=== PATIENT | female | born 1975 | race African-American/Black ===

== ENCOUNTER 2017-08-06 11:45 | Emergency (ER) | payer MEDICARE, OTHER ==
[~2017-08-06] VITALS: Ht 165.1 cm; Wt 101.6 kg
[~2017-08-06 11:45] MED LIST: CALC600T5 PO; CHOL1CAP34 PO; FOLI800T PO; TEGR200T PO; TIZA2CAP3 PO; TIZA4CAP3 PO; VITA100018 PO; [UNRECOGNIZED DRUG - OTHER]
[2017-08-06 11:50] VITALS: BP 171/95; PULSE 85; RESP 16; TEMP 98.2; O2SAT 100
[2017-08-06 13:49] VITALS: BP 181/92; PULSE 78; RESP 16; O2SAT 98
--- NOTE | 2017-08-06 15:12 | PD ---
HPI Chief Complaint: Hypertension Time Seen by Provider: 14:58 Travel History International Travel<30 days: No Contact w/Intl Traveler<30days: No Traveled to known affect area: No History of Present Illness HPI 42yo F with PMH of cerebral palsy, bilateral blindness, right sided numbness and mild weakness from cerebral palsy presents to the ED with hemodialysis patient care specialist because her blood pressure was elevated today. They went to neurologist for normal follow up appointment and blood pressure was elevated there so was told to go follow up with PCP. They call PCP's office and was told to come to the ED. canvas baster said she normally does not have high blood pressure and was very concern about it. Pt denies any fever, chest pain, sob, n/v, abdominal pain, new focal weakness or numbness. PFSH Past Medical History Neurologic: Yes (CEREBRAL PALSY, RIGHT SIDED WEAKNESS) Seizures: Yes (HX CP, FOCAL SEIZURES STARTING ON RIGHT SIDE. ) LMP: on it Past Surgical History Eye Surgery: Yes (as a child, non specific) Social History Alcohol Use: No Tobacco Use: No Substance Use: No Allergies-Medications (Allergen,Severity, Reaction): Coded Allergies: milk (Unverified Allergy, Mild, GI DISTRESS, 08/06/17) Reported Meds & Prescriptions Reported Meds & Active Scripts Active Calcium (Calcium Carbonate) 600 Mg Tab 1,200 Mg PO DAILY Take 2 tablets once daily Vitamin D3 (Cholecalciferol) 50,000 Unit Cap 50,000 Units PO Q7D Folic Acid 0.8 Mg Tab 1,000 Mcg PO TID Tegretol (Carbamazepine) 200 Mg Tab 200 Mg PO TID Nerve Stimulator/Standard Tens Unit 1 Mis Mis 1 Ea .ROUTE DIRECTED Reported Mirtazapine 45 Mg Tab 45 Mg PO HS Tizanidine (Tizanidine HCl) 2 Mg Cap 2 Mg PO DAILY Tizanidine (Tizanidine HCl) 4 Mg Cap 4 Mg PO BID Review of Systems Except as stated in HPI: all other systems reviewed are Neg Physical Exam Narrative GENERAL: 42yo F not in distress. SKIN: Focused skin assessment warm/dry. HEAD: Atraumatic. Normocephalic. EYES: Pupils equal and round. Bilateral blindness. ENT: No nasal bleeding or discharge. Mucous membranes pink and moist. NECK: Trachea midline. No JVD. CARDIOVASCULAR: Regular rate and rhythm. No murmur appreciated. RESPIRATORY: No accessory muscle use. Clear to auscultation. Breath sounds equal bilaterally. GASTROINTESTINAL: Abdomen soft, non-tender, nondistended. Hepatic and splenic margins not palpable. MUSCULOSKELETAL: No obvious deformities. No clubbing. No cyanosis. No edema. NEUROLOGICAL: Awake and alert. No obvious cranial nerve deficits. Motor grossly within normal limits in all extremities. Decreased sensation in right face, arm and leg which is not change from baseline. Normal speech. PSYCHIATRIC: Appropriate mood and affect; insight and judgment normal. Data Data Last Documented VS Vital Signs Date Time Temp Pulse Resp B/P (MAP) Pulse Ox O2 Delivery O2 Flow Rate FiO2 08/06/17 15:29 Room Air 08/06/17 15:29 77 16 167/95 (119) 99 08/06/17 11:50 98.2 Orders Orders Basic Metabolic Panel (Bmp) (08/06/17 15:08) Labs Laboratory Tests Test 08/06/17 16:00 Blood Urea Nitrogen 10 MG/DL Creatinine 0.77 MG/DL Random Glucose 80 MG/DL Calcium Level 9.0 MG/DL Sodium Level 138 MEQ/L Potassium Level 4.2 MEQ/L Chloride Level 109 MEQ/L Carbon Dioxide Level 24.0 MEQ/L Anion Gap 5 MEQ/L Estimat Glomerular Filtration Rate 99 ML/MIN MDM Medical Decision Making Medical Screen Exam Complete: Yes Emergency Medical Condition: Yes Differential Diagnosis New onset HTN vs. kidney failure vs. asymptomatic elevated blood pressure Narrative Course 42yo F with cerebral palsy here because her blood pressure was elevated at routine neurology follow up. Pt has no new weakness or numbness and denies any complaints. BP was 171/95 and repeat BP was 167/95. BMP showed normal creatinine. I explained to patient that we do not treat this blood pressure if she has no symptoms and to return to the ED if she has any new symptoms. Diagnosis Primary Impression: Elevated blood pressure reading Patient Instructions: General Instructions Departure Forms: Tests/Procedures Additional Instructions: Please follow up with your primary care physician for elevated blood pressure. Return to the ED if you have any new symptoms. Med/Other Pt SpecificInfo: No Change to Meds Disposition: 01 DISCHARGE HOME Condition: Stable Millie Desai DO August 06, 2017 15:12
[2017-08-06 15:29] VITALS: BP 167/95; PULSE 77; RESP 16; O2SAT 99
[2017-08-06] MEDS ORDERED: MIRT45TA PO (15:36)
[2017-08-06 16:25] LABS: CREATININE 0.77 MG/DL (0.50-1.00)
== END 2017-08-06 17:15 | disposition home or self-care (01) ==
LOC: PHED 11:45
DX: R03.0 Elevated blood-pressure reading, without diagnosis of hypertension (principal); H54.3 Unqualified visual loss, both eyes; G80.9 Cerebral palsy, unspecified; R20.0 Anesthesia of skin
CPT/HCPCS: 80048; 99283

== ENCOUNTER 2017-08-13 10:08 | Emergency (ER) | payer MEDICARE, MEDICAID ==
[~2017-08-13] VITALS: Ht 162.6 cm; Wt 140.0 kg
[~2017-08-13 10:08] MED LIST changes: +MIRT45TA PO; -VITA100018 PO
[2017-08-13 10:15] VITALS: BP 171/106; PULSE 82; RESP 16; TEMP 98.7; O2SAT 99
[2017-08-13 11:31] VITALS: BP 178/103; PULSE 75; RESP 16; O2SAT 100
[2017-08-13] MEDS ORDERED: SODIUM CHLORIDE 0.9% FLUSH 10 ML FLUSH IVF PRN (12:00)
[2017-08-13] MEDS ORDERED: amLODIPine BESYLATE 5 MG TAB PO ONE (12:00)
--- NOTE | 2017-08-13 12:06 | PD ---
HPI Chief Complaint: Hypertension Time Seen by Provider: 11:46 Travel History International Travel<30 days: No Contact w/Intl Traveler<30days: No Traveled to known affect area: No History of Present Illness HPI Patient is a 42-year-old female with history of cerebral palsy, seizure disorder , blindness to both eyes, presents the emergency room for evaluation of headache with hypertension. Patient reports that for the past 8 days, her blood pressure has been elevated. Reports that she was seen at her psychiatrist 's office today and was told to come to the emergency room as her systolic blood pressure was over 180, reports that she also had headache with her symptoms. Patient's caregiver is at bedside, reports no history of hypertension in the past. Reports that patient was recently seen at [facility] on August 06, 2017 for similar complaints and was sent home and was told to follow-up with her primary care doctor. Patient was not started on any antihypertensives at that time. Patient reports that she has been having intermittent frontal headaches, reports no nausea or vomiting with the symptoms. Patient reports that she is concerned as her blood pressure has been persistently high as it has been monitored by her caregiver. Patient denies any chest pain or shortness of breath, patient denies any abdominal pain, denies any nausea vomiting, patient with no other complaints at this time. [facility] Past Medical History Anxiety: Yes Neurologic: Yes (CEREBRAL PALSY, RIGHT SIDED WEAKNESS) Seizures: Yes (HX CP, FOCAL SEIZURES STARTING ON RIGHT SIDE. ) ?: Not Past Surgical History Eye Surgery: Yes (as a child, non specific) Social History Alcohol Use: No Tobacco Use: No Substance Use: No Allergies-Medications (Allergen,Severity, Reaction): Coded Allergies: milk (Unverified Allergy, Mild, GI DISTRESS, 08/06/17) Reported Meds & Prescriptions Reported Meds & Active Scripts Active Calcium (Calcium Carbonate) 600 Mg Tab 1,200 Mg PO DAILY Take 2 tablets once daily Vitamin D3 (Cholecalciferol) 50,000 Unit Cap 50,000 Units PO Q7D Folic Acid 0.8 Mg Tab 1,000 Mcg PO TID Tegretol (Carbamazepine) 200 Mg Tab 200 Mg PO TID Nerve Stimulator/Standard Tens Unit 1 Mis Mis 1 Ea .ROUTE DIRECTED Reported Mirtazapine 45 Mg Tab 45 Mg PO HS Tizanidine (Tizanidine HCl) 2 Mg Cap 2 Mg PO DAILY Tizanidine (Tizanidine HCl) 4 Mg Cap 4 Mg PO BID Review of Systems General / Constitutional: No: Fever Eyes: No: Visual changes HENT: Positive: Headaches Cardiovascular: No: Chest Pain or Discomfort Respiratory: No: Shortness of Breath Gastrointestinal: No: Abdominal Pain Genitourinary: No: Dysuria Musculoskeletal: No: Pain Skin: No Rash Neurologic: Positive: Headache, No: Weakness Psychiatric: No: Depression Endocrine: No: Polydipsia Hematologic/Lymphatic: No: Easy Bruising Physical Exam Narrative GENERAL: No acute distress, nontoxic SKIN: Focused skin assessment warm/dry. HEAD: Atraumatic. Normocephalic. ENT: No nasal bleeding or discharge. Mucous membranes pink and moist. NECK: Trachea midline. No JVD. CARDIOVASCULAR: Regular rate and rhythm. No murmur appreciated. RESPIRATORY: No accessory muscle use. Clear to auscultation. Breath sounds equal bilaterally. GASTROINTESTINAL: Abdomen soft, non-tender, nondistended. Hepatic and splenic margins not palpable. MUSCULOSKELETAL: No obvious deformities. No clubbing. No cyanosis. No edema. NEUROLOGICAL: Awake and alert. No obvious cranial nerve deficits. Motor grossly within normal limits. Normal speech. PSYCHIATRIC: Appropriate mood and affect; insight and judgment normal. Data Data Last Documented VS Vital Signs Date Time Temp Pulse Resp B/P (MAP) Pulse Ox O2 Delivery O2 Flow Rate FiO2 08/13/17 15:10 78 15 178/93 (121) 100 Room Air 08/13/17 10:15 98.7 Orders Orders Complete Blood Count With Diff (08/13/17 11:58) Basic Metabolic Panel (Bmp) (08/13/17 11:58) Ct Brain W/O Iv Contrast(Rout) (08/13/17 11:58) Ecg Monitoring (08/13/17 11:58) Iv Access Insert/Monitor (08/13/17 11:58) Oximetry (08/13/17 11:58) Sodium Chloride 0.9% Flush (Ns Flush) (08/13/17 12:00) Electrocardiogram (08/13/17 ) Amlodipine (Norvasc) (08/13/17 12:00) Labs Laboratory Tests Test 08/13/17 12:28 White Blood Count 7.2 TH/MM3 Red Blood Count 4.35 MIL/MM3 Hemoglobin 13.3 GM/DL Hematocrit 40.5 % Mean Corpuscular Volume 93.1 FL Mean Corpuscular Hemoglobin 30.6 PG Mean Corpuscular Hemoglobin Concent 32.8 % Red Cell Distribution Width 12.3 % Platelet Count 241 TH/MM3 Mean Platelet Volume 8.4 FL Neutrophils (%) (Auto) 73.2 % Lymphocytes (%) (Auto) 17.4 % Monocytes (%) (Auto) 8.7 % Eosinophils (%) (Auto) 0.0 % Basophils (%) (Auto) 0.7 % Neutrophils # (Auto) 5.3 TH/MM3 Lymphocytes # (Auto) 1.3 TH/MM3 Monocytes # (Auto) 0.6 TH/MM3 Eosinophils # (Auto) 0.0 TH/MM3 Basophils # (Auto) 0.1 TH/MM3 CBC Comment DIFF FINAL Differential Comment Blood Urea Nitrogen 9 MG/DL Creatinine 0.81 MG/DL Random Glucose 81 MG/DL Calcium Level 9.1 MG/DL Sodium Level 140 MEQ/L Potassium Level 3.9 MEQ/L Chloride Level 103 MEQ/L Carbon Dioxide Level 29.4 MEQ/L Anion Gap 8 MEQ/L Estimat Glomerular Filtration Rate 94 ML/MIN MDM Medical Decision Making Medical Screen Exam Complete: Yes Emergency Medical Condition: Yes Medical Record Reviewed: Yes Interpretation(s) Vital Signs Date Time Temp Pulse Resp B/P (MAP) Pulse Ox O2 Delivery O2 Flow Rate FiO2 08/13/17 11:31 75 16 178/103 (128) 100 Room Air 08/13/17 11:27 Room Air 08/13/17 10:15 98.7 82 16 171/106 (127) 99 Differential Diagnosis Accelerated hypertension, cephalgia, ICH Narrative Course During the course of the patients emergency department visit, the patients history, examination, and differential diagnosis were reviewed with the patient. The patient was placed on a casting sorter with oximetry and frequent blood pressure monitoring. The patient had an IV access obtained and blood work sent for analysis. The patient was initially provided PO Norvasc as patient has had 8 days worth of documented elevated blood pressures. Discussed with patient as well as caregiver plan to start her on Norvasc, understands the patient will need to follow-up with her primary care doctor tomorrow for blood pressure recheck. Patient's caregiver has been trying to reach her primary care doctor, reports that they have not been able to get hold her for an appointment given this holiday weekend. The patients laboratory studies were reviewed and remarkable for Laboratory Tests Test 08/13/17 12:28 White Blood Count 7.2 TH/MM3 (4.0-11.0) Red Blood Count 4.35 MIL/MM3 (4.00-5.30) Hemoglobin 13.3 GM/DL (11.6-15.3) Hematocrit 40.5 % (35.0-46.0) Mean Corpuscular Volume 93.1 FL (80.0-100.0) Mean Corpuscular Hemoglobin 30.6 PG (27.0-34.0) Mean Corpuscular Hemoglobin Concent 32.8 % (32.0-36.0) Red Cell Distribution Width 12.3 % (11.6-17.2) Platelet Count 241 TH/MM3 (150-450) Mean Platelet Volume 8.4 FL (7.0-11.0) Neutrophils (%) (Auto) 73.2 % (16.0-70.0) Lymphocytes (%) (Auto) 17.4 % (9.0-44.0) Monocytes (%) (Auto) 8.7 % (0.0-8.0) Eosinophils (%) (Auto) 0.0 % (0.0-4.0) Basophils (%) (Auto) 0.7 % (0.0-2.0) Neutrophils # (Auto) 5.3 TH/MM3 (1.8-7.7) Lymphocytes # (Auto) 1.3 TH/MM3 (1.0-4.8) Monocytes # (Auto) 0.6 TH/MM3 (0-0.9) Eosinophils # (Auto) 0.0 TH/MM3 (0-0.4) Basophils # (Auto) 0.1 TH/MM3 (0-0.2) CBC Comment DIFF FINAL Differential Comment Blood Urea Nitrogen 9 MG/DL (7-18) Creatinine 0.81 MG/DL (0.50-1.00) Random Glucose 81 MG/DL (74-106) Calcium Level 9.1 MG/DL (8.5-10.1) Sodium Level 140 MEQ/L (136-145) Potassium Level 3.9 MEQ/L (3.5-5.1) Chloride Level 103 MEQ/L (98-107) Carbon Dioxide Level 29.4 MEQ/L (21.0-32.0) Anion Gap 8 MEQ/L (5-15) Estimat Glomerular Filtration Rate 94 ML/MIN (>89) Radiology studies were reviewed and remarkable for Last Impressions Head CT 08/13/17 1158 Signed Impressions: CONCLUSION: 1. Bilateral occipital porencephaly. 2. No acute intracranial abnormality. 3. This appears unchanged from prior report. Vital Signs Date Time Temp Pulse Resp B/P (MAP) Pulse Ox O2 Delivery O2 Flow Rate FiO2 08/13/17 15:10 78 15 178/93 (121) 100 Room Air 08/13/17 13:24 79 15 163/98 (119) 100 Room Air 08/13/17 12:36 100 Room Air 08/13/17 11:31 75 16 178/103 (128) 100 Room Air 08/13/17 11:27 Room Air 08/13/17 10:15 98.7 82 16 171/106 (127) 99 Patient reevaluated, patient feeling much better at this time. Blood pressure is 178/93. All labs and all studies as well as incidental findings were reviewed with patient in detail. Plan to start patient on Norvasc 5 mg daily, she will follow-up with her primary care doctor for further blood pressure monitoring as well as medication adjustments. Diagnosis Primary Impression: Hypertension Qualified Codes: I10 - Essential (primary) hypertension Patient Instructions: General Instructions Additional Instructions: Please provide patient with a copy of their lab work and studies at discharge* * Please follow up with your primary care doctor in 1-2 days Return to the ER if symptoms worsen or progress Return to the ER as needed Med/Other Pt SpecificInfo: Prescription(s) given Scripts Amlodipine (Norvasc) 5 Mg Tab 5 MG PO DAILY for Blood Pressure Management, #30 TAB 0 Refills Prov: Tanja Sanders DO 08/13/17 Disposition: 01 DISCHARGE HOME Condition: Stable Tanja Sanders DO August 13, 2017 12:06
[2017-08-13 12:36] VITALS: O2SAT 100
[2017-08-13 12:37] LABS: AUTOMATED NEUTROPHIL # 5.3 TH/MM3 (1.8-7.7); BASOPHIL # 0.1 TH/MM3 (0-0.2); BASOPHIL % 0.7 % (0.0-2.0); HEMATOCRIT 40.5 % (35.0-46.0); HEMOGLOBIN 13.3 GM/DL (11.6-15.3); LYMPH % 17.4 % (9.0-44.0); LYMPHOCYTE # 1.3 TH/MM3 (1.0-4.8); MEAN CELL VOLUME 93.1 FL (80.0-100.0); MEAN CORPUSCULAR HEMOGLOBIN 30.6 PG (27.0-34.0); MEAN CORPUSCULAR HGB CONC 32.8 % (32.0-36.0); MEAN PLATELET VOLUME 8.4 FL (7.0-11.0); MONO % 8.7 % (0.0-8.0); MONOCYTE # 0.6 TH/MM3 (0-0.9); NEUT % 73.2 % (16.0-70.0); PLATELET COUNT 241 TH/MM3 (150-450); RED BLOOD COUNT 4.35 MIL/MM3 (4.00-5.30); RED CELL DISTRIBUTION WIDTH 12.3 % (11.6-17.2); WHITE BLOOD COUNT 7.2 TH/MM3 (4.0-11.0)
[2017-08-13 12:53] LABS: BICARBONATE 29.4 MEQ/L (21.0-32.0); CALCIUM 9.1 MG/DL (8.5-10.1); CREATININE 0.81 MG/DL (0.50-1.00)
[2017-08-13 13:24] VITALS: BP 163/98; PULSE 79; RESP 15; O2SAT 100
--- NOTE | 2017-08-13 14:43 | RADRPT ---
EXAM DATE: 08/13/2017 2:39 PM EDT AGE/SEX: 42 years / Female INDICATIONS: Cephalgia, hypertension. CLINICAL DATA: This is the patient's initial encounter. Patient reports that signs and symptoms have been present for 1 day and indicates a pain score of 3/10. MEDICAL/SURGICAL HISTORY: . Cerebral palsy None. RADIATION DOSE: 45.23 CTDI (mGy) COMPARISON: No prior [facility] images available for comparison. Report from prior MRI 11/05/2012 TECHNIQUE: CT of the head without contrast. Using automated exposure control and adjustment of the mA and/or kV according to patient size, radiation dose was kept as low as reasonably achievable to ob tain optimal diagnostic quality images. FINDINGS: Cerebrum: The posterior horns of both lateral ventricles are very prominent greater on the left.. N o evidence of midline shift, mass lesion, hemorrhage or acute infarction. No extraaxial fluid collec tions are seen. Posterior Fossa: The cerebellum and brainstem are intact. The 4th ventricle is midline. The cerebe llopontine angle is unremarkable. Extracranial: The visualized portion of the orbits is intact. Skull: The calvaria is intact. No evidence of skull fracture. CONCLUSION: 1. Bilateral occipital porencephaly. 2. No acute intracranial abnormality. 3. This appears unchanged from prior report. Electronically signed by: Mike Garcia MD 08/13/2017 2:41 PM EDT
[2017-08-13 15:10] VITALS: BP 178/93; PULSE 78; RESP 15; O2SAT 100
[2017-08-13] MEDS ORDERED: AMLO5 PO (15:15)
--- NOTE | 2017-08-14 14:12 | EKG ---
Date Performed: 08/13/2017 Time Performed: 12:24:52 PTAGE: 42 years EKG: Sinus rhythm MODERATE VOLTAGE CRITERIA FOR LVH, CONSIDER NORMAL VARIANT NONSPECIFIC T-WAVE ABNORMALITY BORDERLINE ECG PREVIOUS TRACING : 01/13/2008 11.53 Since the previous tracing, no significant change noted DOCTOR: Sergo Marcos Interpretating Date/Time 08/14/2017 14:05:22
== END 2017-08-13 15:40 | disposition home or self-care (01) ==
LOC: NEPD 10:08
DX: I10 Essential (primary) hypertension (principal); R94.31 Abnormal electrocardiogram [ECG] [EKG]; G80.9 Cerebral palsy, unspecified; F41.9 Anxiety disorder, unspecified
CPT/HCPCS: 70450; 80048; 85025; 93005; 99285